=== PATIENT | male | born 1950 | race Caucasian/White ===

== ENCOUNTER 2017-01-13 08:13 | Outpatient (CLI) | payer MEDICARE ==
[~2017-01-13] VITALS: Ht 188.2 cm; Wt 113.6 kg
--- NOTE | ~2017-01-13 | HEMODYNAMI ---
PATIENT:HECTOR HUFF MEDICAL RECORD: [id number] : 50 LOCATION:CRYSTAL ADMISSION DATE: 01/13/17 Generatedon:01/13/201710:01 Patient name: HECTOR HUFF Patient #: [id number] SSN: : 1950 Date of study: 01/13/2017 Page: Of Hemodynamic Procedure Report Patient Data Patient Demographics Procedure consent was obtained First Name: HECTOR Gender: Male Last Name: REFUGIO : 1950 Middle Initial: E Age: 66 year(s) Patient #: [id number] Race: Unknown Additional ID: [id number] Contact details Address: [address] [place] [address] State: [place] City: [place] Zip code: [address] Admission Admission Data Admission Date: 01/13/2017 Admission Time: 8:13 Procedure Procedure Types Cath Procedure Diagnostic Procedure LHC LHC w/Coronaries PCI Procedure Coronary Stent Initial Miscellaneous Procedures Moderate Sedation up to 30 minutes Peripheral Cath Diagnostic Procedure Cath Peripheral Four Vessel Arteriogram Procedure Description Procedure Date Procedure Date: 01/13/2017 Procedure Start Time: 9:42 Procedure End Time: 9:59 Procedure Staff Name Function Derrick Daly MD Performing Physician James Huizar RT Scrub Isa Lind RN Nurse Trace Zamarripa RN Equipment Maintenance Superintendent René Cintron RT Monitor Yannick Gonzalez RT Monitor Procedure Data Cath Procedure Fluoroscopy Diagnostic fluoroscopy Total fluoroscopy Time: 3.4 time: 3.4 min min Diagnostic fluoroscopy Total fluoroscopy dose: 957 dose: 957 mGy mGy Contrast Material Contrast Material Type Amount (ml) Isovue 300 124 Entry Location Entry Primary Successful Side Size Upsize Upsize Entry Closure Succes sful Closure Location (Fr) 1 (Fr) 2 (Fr) Remarks Device Remarks Femoral Right 5 Fr 6 Fr Exoseal artery Short Estimated blood loss: 10 ml Diagnostic catheters Device Type Used For End Catheter Placement Cordis 5Fr Pigtail Procedure Catheter (MP) Cordis 5Fr JL 4.0 Procedure Catheter (MP) Cordis 5Fr 3DRC Catheter Procedure (MP) Procedure Complications No complications Procedure Medications Medication Administration Route Dosage Oxygen NC 2 l/min Heparin Flush Bag added to field 2 bags (1000units/500ml NS) Lidocaine 2% added to field 20 Versed I.V. 1 mg Fentanyl I.V. 50 mcg Versed I.V. 1 mg Fentanyl I.V. 50 mcg Versed I.V. 1 mg Fentanyl I.V. 50 mcg Versed I.V. 1 mg Fentanyl I.V. 50 mcg Heparin Bolus I.V. 4000 units Hemodynamics Rest Heart Rate: 49 (bpm) Pressure Samples Time Site Value (mmHg) Purpose Heart Use Rate(bpm) 9:44 LV 95/66,68 Snapshot 49 Snapshots Pre Cath Intra NCS Post Cath Vital Signs Time Heart Resp SPO2 NIBP (mmHg) Rhythm Pain Sedation Rate (ipm) (%) Status Level (bpm) 9:22:17 44 16 99 Measuring SB 0 (11) 10(A) , No pain 9:22:27 45 16 99 158/92(105) SB 0 (11) 10(A) , No pain 9:26:47 47 14 98 147/83(99) SB 0 (11) 10(A) , No pain 9:31:03 49 13 96 135/84(99) SB 0 (11) 10(A) , No pain 9:35:15 48 16 95 124/80(92) SB 0 (11) 10(A) , No pain 9:39:27 48 16 95 121/75(86) SB 0 (11) 10(A) , No pain 9:43:35 46 16 95 118/65(84) SB 0 (11) 9(A) , No pain 9:47:43 52 19 95 125/83(100) SB 0 (11) 9(A) , No pain 9:51:55 48 18 95 115/82(101) SB 0 (11) 9(A) , No pain 9:56:02 50 19 95 130/78(96) SB 0 (11) 9(A) , No pain Medications Time Medication Route Dose Verified Delivered Reason Notes Effectiveness by by 9:22:01 Oxygen NC 2 Derrick Isa Per physician l/min Addy Lind RN 9:22:09 Heparin Flush added 2 Derrick Meza used for Bag to bags Addy Daly MD procedure (1000units/500ml field NS) 9:22:19 Lidocaine 2% added 20ml Derrick Dietzrey used for to vial Addy Daly MD procedure field 9:37:38 Versed I.V. 1 mg Derrick Isa for sedation Addy Lind RN 9:37:43 Fentanyl I.V. 50 Derrick Isa for sedation mcg Addy Lind RN 9:39:45 Versed I.V. 1 mg Derrick Isa for sedation Addy Lind RN 9:39:55 Fentanyl I.V. 50 Derrick Isa for sedation mcg Addy Lind RN 9:41:32 Fentanyl I.V. 50 Derrick Isa for sedation mcg Addy Lind RN 9:41:46 Versed I.V. 1 mg Derrick Isa for sedation Addy Lind RN 9:43:40 Versed I.V. 1 mg Derrick Isa for sedation Addy Lind RN 9:43:43 Fentanyl I.V. 50 Derrick Isa for sedation mcg Addy Lind RN 9:50:03 Heparin Bolus I.V. 4000 Derrick Isa for dose units Addy Lind RN anticoagulation verified wt dr daly Procedure Log Time Note 9:00:57 Trace Zamarripa RN sent for patient. Start room use. 9:05:53 ACC Patient presents with Unstable Angina CCS Anginal Class 3--Marked limitation of physical activity, angina occurs with ordinary activity.. 9:05:55 Diagnostic Cath status Urgent 9:06:04 Time tracking: Regular hours 9:06:08 Plan of Care:Hemodynamics will remain stable., Cardiac rhythm will remain stable., Comfort level will be maintained., Respiratory function will remain adequate., Patient/ family verbilizes understanding of procedure., Procedure tolerated without complication., Recovers from procedure without complications.. 9:10:36 Patient received from Pre/Post Procedure Room to CCL 2 Alert and oriented. Tansferred to table in Supine position. 9:10:37 Warm blankets applied, and sarah hugger turned on for patient comfort. 9:10:37 Correct patient and procedure confirmed by team. 9:10:39 Signed procedure consent form obtained from patient. 9:10:39 ECG and BP/O2 sat monitors applied to patient. 9:20:29 Vital chart was started 9:22:01 Oxygen 2 l/min NC was administered by Isa Lind RN; Per physician; 9:22:09 Heparin Flush Bag (1000units/500ml NS) 2 bags added to field was administered by Derrick Daly MD; used for procedure; 9:22:19 Lidocaine 2% 20ml vial added to field was administered by Derrick Daly MD; used for procedure; 9:26:00 Baseline sample Acquired. 9:26:04 Rhythm: 1st degree heart block 9:26:05 Full Disclosure recording started 9:26:13 H&P Date Dictated: 12/17/2016 Within 30 days and on chart., H&P Addendum completed by physician on day of procedure. (MUST COMPLETE FOR ALL OUTPATIENTS). 9:26:14 Pre-procedure instructions explained to patient. 9:26:14 Pre-op teaching completed and patient verbalized understanding. 9:26:15 Family in patients room. 9:26:17 Patient NPO since Midnight. 9:26:19 Is the patient allergic to Iodine/contrast media? No. 9:26:25 Is patient on blood thinner?Yes 9:26:28 ACC The patient was administered the following blood thiners within the last 24 hours: ACCPlavix 9:26:47 Last dose of Plavix: this AM 9:26:50 Patient diabetic? Yes. 9:26:50 If diabetic: On Metformin? Yes 9:26:52 If on Metformin: Last Dose? 01/11/2017 9:26:54 Previous problem with sedation/anesthesia? No ? 9:26:56 Snore? Yes 9:26:58 Sleep apnea? Yes 9:26:59 Deviated septum? No 9:27:14 Airway obstruction? No ? 9:27:16 Dentures? No ? 9:27:18 Pre procedure: right dorsailis pedis pulse 1+ Palpable, but thready & weak; easily obliterated 9:27:21 Patient pain scale 0/10 ?. 9:27:31 IV patent on arrival in left forearm with 0.9% NaCl at O. 9:27:52 Lab results completed and on chart. 9:28:38 Pt's abdomen was taped back for access of right groin. 9:28:41 Right groin area was prepped with chlora-prep and draped in sterile fashion 9::42 Alarms reviewed by R. N. 9::42 Sharps counted by scrub and verified by R.N. 9:29:10 Procedure type changed to Cath procedure, Diagnostic procedure, LHC, LHC w/Coronaries, PCI procedure, Coronary Stent Initial, Miscellaneous Procedures, Moderate Sedation up to 30 minutes, Peripheral Cath Diagnostic Procedure, Cath Peripheral, Four Vessel Arteriogram 9:30:18 Use device set Femoral Dx 9:30:20 Tegaderm 4 x 4 opened to sterile field. 9:30:21 Acist Hand Control opened to sterile field. 9:30:21 Acist Manifold opened to sterile field. 9:30:22 Acist Syringe opened to sterile field. 9:30:23 Bag Decanter opened to sterile field. 9:30:23 Medline Cath Pack opened to sterile field. 9:30:23 Terumo 5Fr Ashton Sheath opened to sterile field. 9:30:24 St Ernico 260cm J .035 wire opened to sterile field. 9:30:25 Diagnostic Infinity 5Fr Multipack catheter opened to sterile field. 9:36:13 Zero performed for pressure channel P1 9:37:02 Physician arrived 9:37:03 --------ALL STOP TIME OUT------ 9:37:03 Final Timeout: patient, procedure, and site verified with staff and physician. All members of the team are in agreement. 9:37:07 Right groin site verified by team. 9:37:09 Physical assessment completed. ASA score P 2 - A patient with mild systemic disease as per Derrick Daly MD. 9:37:12 Sedation plan: IV Moderate Sedation Versed, Fentanyl 9:37:38 Versed 1 mg I.V. was administered by Isa Lind RN; for sedation; 9:37:43 Fentanyl 50 mcg I.V. was administered by Isa Lind RN; for sedation; 9:39:45 Versed 1 mg I.V. was administered by Isa Lind RN; for sedation; 9:39:55 Fentanyl 50 mcg I.V. was administered by Isa Lind RN; for sedation; 9:41:32 Fentanyl 50 mcg I.V. was administered by Isa Lind RN; for sedation; 9:41:46 Versed 1 mg I.V. was administered by Isa Lind RN; for sedation; 9:41:54 Procedure started. 9:42:07 Local anesthetic to right femoral artery with Lidocaine 2% by Derrick Daly MD.INITIAL ACCESS ONLY 9:42:38 A 5 Fr sheath was inserted into the Right Femoral artery 9:43:40 Versed 1 mg I.V. was administered by Isa Lind RN; for sedation; 9:43:42 A Cordis 5Fr Pigtail Catheter (MP) was advanced over the wire and used for Procedure. 9:43:43 Fentanyl 50 mcg I.V. was administered by Isa Lind RN; for sedation; 9:44:13 LV gram done using ANDRES 9:44:18 Injector settings: Ml/sec: 10, Volume: 20, 9:44:22 EF : 55 % 9:44:28 Catheter exchanged over wire. 9:44:32 A Cordis 5Fr JL 4.0 Catheter (MP) was advanced over the wire and used for Procedure. 9:44:50 LCA angiography performed. 9:45:22 ShopIttronic Launcher 6Fr EBU 4.5 guide catheter opened to sterile field. 9:45:39 Catheter removed. 9:45:47 A Cordis 5Fr 3DRC Catheter (MP) was advanced over the wire and used for Procedure. 9:46:11 RCA angiography performed. 9:46:24 Guaman Whisper J 300cm 0.014 guide wire opened to sterile field. 9:46:25 [facility] BasixCompak Inflation Kit opened to sterile field. 9:47:02 Right subclavian angiography performed 9:47:32 Left carotid angiography performed. 9:48:05 Left subclavian angiography performed 9:48:13 Catheter removed. 9:48:36 Terumo 6Fr Ashton Sheath opened to sterile field. 9:48:45 Sheath upsized to a 6 Fr Short. 9:49:00 6 Fr EBU 4.5 guide catheter was inserted over the wire 9:50:03 Heparin Bolus 4000 units I.V. was administered by Isa Lind RN; for anticoagulation; dose verified wtih dr daly 9:50:37 WHISPER wire advanced. 9:52:38 Wire advanced across lesion. 9:52:39 Inflation Number: 1 A Medtronic Resolute 2.5 X 14 stent was prepped and advanced across the Mid LAD. The stent was deployed at 21 HASMUKH for 0:10 (min:sec). 9:52:47 Inflation number: 2 The stent balloon was then re-inflated across the Mid LAD to 21 HASMUKH for 0:10 (min:sec). 9:52:54 Wire removed. 9:52:56 Guide catheter removed. 9:53:11 Cordis 6Fr Exoseal opened to sterile field. 9:53:34 Sheath removed intact; hemostasis achieved with Exoseal to the Right Femoral artery. 9:53:36 Procedure ended.(Physican Out) 9:55:33 Fluoroscopy time 03.40 minutes. 9:55:37 Fluoroscopy dose: 957 mGy 9:55:37 Flurop Dose total: 957 9:55:46 Contrast amount:Isovue 300 124ml. 9:55:47 Sharps counted by scrub and verified by R.N. 9:55:58 Insertion/operative site no bleeding no hematoma. 9:56:00 Post-op/insertion site Right Femoral artery dressed using a 4 x 4 and Tegaderm. 9:56:04 Post right femoral artery:stable, soft, clean and dry 9:56:05 Post Procedure Pulses reassessed and unchanged 9:56:07 Post-procedure physical assessment completed. ASA score P 2 - A patient with mild systemic disease as per Derrick Daly MD. 9:56:09 Post procedure rhythm: unchanged. 9:56:11 Estimated blood loss: 10 ml 9:56:13 Post procedure instruction explained to patient.Patient verbalizes understanding. 9:59:11 Procedure and supply charges have been captured, reviewed, submitted and are correct. 9:59:13 Procedure Complication : No complications 9:59:15 Vital chart was stopped 9:59:15 See physician's report for complete and final results. 9:59:17 Report given to Pre/Post Procedure Room. 9:59:19 Patient transfered to Pre/Post Procedure Room with Stretcher. 9:59:22 Procedure ended. 9:59:22 Full Disclosure recording stopped 9:59:54 End room use (Document Last) Intervention Summary Intervention Notes Time ActionType Lesion and Equipment Action# Pressure Duration Attributes Used 9:52:39 Place stent Mid LAD Medtronic 1 21 00:10 Resolute 2.5 X 14 stent 9:52:47 Reinflate Mid LAD Medtronic 2 21 00:10 stent Resolute balloon 2.5 X 14 stent Device Usage Item Name Manufacture Quantity Catalog Hospital Part Current Minimal Lot# / Number Charge Number Stock Stock Serial# Code Tegaderm 4 3M 1 [id number] [id number] 149716 5 x 4 Acist Hand Acist 1 30947 809543 016507 218923 5 iMedix Inc. Systems Inovus Solar Acist Acist 1 65530 473361 812041 989651 5 PrepClass Medical Systems Inovus Solar Acist Acist 1 38429 657821 468649 828172 20 Syringe Weibu Bag Microtek 1 2002S 456002 89782 785419 5 Sud[employer] Paints Inc. Medline Cardinal 1 [id number] 328751 38997 015873 5 Cath Pack Health Terumo 5Fr Terumo 1 [id number] 053334 200592 570401 [address] St Enrico 1 468150 267057 345645 894599 30 260cm J .035 wire Diagnostic Cardinal 1 [id number] 041955 32648 214984 30 Infinity Health 5Fr Multipack catheter Cordis 5Fr Cardinal 1 [id number] 5 Pigtail Health Catheter (MP) Cordis 5Fr Cardinal 1 [id number] 5 JL 4.0 Health Catheter (MP) Medtronic Medtronic 1 [id number] 355762 72616 614000 0 Launcher 6Fr EBU 4.5 guide catheter Cordis 5Fr Cardinal 1 287735 5 3DRC Health Catheter (MP) Guaman Guaman 1 [id number] 633964 084835 966179 5 [facility] J Vascular 300cm 0.014 guide wire Merit Merit 1 [id number] 208565 558341 581840 15 CompleteCar.com Inflation Kit Terumo 6Fr Terumo 1 CEH104 762155 910298 272935 40 Ashton Sheath Medtronic Medtronic 1 [id number] 696682 995081 1 [id number] Resolute 2.5 X 14 stent Cordis 6Fr Cardinal 1 EX600 210514 148566 978673 10 [employer]her[employer] Signature Audit [place]son Stage Time Signature Unsigned Intra-Procedure 01/13/2017 Yannick Gonzalez 10:01:52 AM RT(R) Signatures Monitor : René Cintron RT Signature : Date : Time : Monitor : Yannick Gonzalez RT Signature : Date : Time : [place] [address] [place] [address]
[~2017-01-13 08:13] MED LIST: AMBIEN10 MG PO; ASPIRIN81 MG PO; BACTROBAN NASAL1 GM NASAL; CELEXA20 MG PO; CLARITIN 10 MG10 MG PO; COREG25 MG PO; COZAAR50 MG PO; EFFIENT10 MG PO; FLOMAX0.4 MG PO; GLUCOPHAGE500 MG PO; HYDRALAZINE HC100 MG; HYDROCHLOROTHIA50 MG PO; HYDROCODONE-APA1 TAB PO; KLOR-CON M2020 MEQ PO; KLOR-CON20 MEQ/PKT PO; NAPROSYN500 MG PO; NORVASC10 MG PO; PLAVIX75 MG PO; ZYLOPRIM300 MG PO
[2017-01-13] MEDS ORDERED: PLAVIX75 MG PO (08:34)
[2017-01-13] MEDS ORDERED: LIPITOR10 MG PO (08:36)
[2017-01-13] MEDS ORDERED: NORVASC10 MG PO (08:37)
[2017-01-13] MEDS ORDERED: MECLIZINE HCL25 MG PO (08:39)
[2017-01-13 08:41] VITALS: BP 131/74; Ht 188.2 cm; Wt 113.6 kg
[2017-01-13 08:51] LABS: BASOPHILS 0.5 % (0-2); EOSINOPHILS 5.5 % (0-7); HEMATOCRIT 45.9 % (42.0-54.0); HEMOGLOBIN 15.4 g/dL (13.5-17.5); IMMATURE GRANULOCYTES 0.4 % (0-5); LYMPHOCYTES 25.7 % (15-50); MCH 30.2 pg (26.0-34.0); MCHC 33.6 g/dL (31.0-37.0); MEAN PLATELET VOLUME 10.8 fL (7.4-10.4); MONOCYTES 9.6 % (2-11); NEUTROPHILS 58.3 % (40-80); RDW 13.6 % (11.5-14.5); WBC 7.7 10x3/uL (4.8-10.8)
[2017-01-13 08:53] LABS: PLATELET COUNT 235 10x3/uL (130-400)
[2017-01-13 08:58] LABS: CALC OSMOLALITY 283 mosm/kg (275-300); CALCIUM 9.9 mg/dL (8.5-10.1); CARBON DIOXIDE 25.9 mmol/L (21.0-32.0); CHLORIDE - SERUM 102 mmol/L (98-107); GLUCOSE 179 mg/dL (74-106); SODIUM 139 mmol/L (136-145); UREA NITROGEN 17 mg/dL (7-18); eGFR NON AFRICAN AMERICAN 79 mL/min (90-120)
--- NOTE | 2017-01-13 10:17 | NUR ---
1010 RECEIVED PT FROM TEACHING ARTIST, PT IS ASLEEP AWAKENS TO VERBAL STIMULI. DENIES ANY C/O AT THIS TIME. DRESSING TO RIGHT GROIN IS CDI, NO BLEEDING OR HEMATOMA NOTED. NO FAMILY AT BEDSIDE. CALL LIGHT IN REACH, INSTRUCTED PT TO CALL FOR NEEDS.
--- NOTE | 2017-01-13 10:39 | NUR ---
1025 PT DENIES ANY C/O. SINUS BRADYCARDIA, RATE 46. RIGHT GROIN CDI, NO BLEEDING OR HEMATOMA NOTED. PEDAL PULSES PALPABLE, FEET WARM TO TOUCH, CAP REFILL IS BRISK. NO FAMILY AT BEDSIDE, CALL LIGHT IS IN REACH.
--- NOTE | 2017-01-13 10:53 | NUR ---
1050 SINUS BRADYCARDIA, RATE 47, BP 108/70. RIGHT GROIN IS CDI, NO BLEEDING OR HEMATOMA NOTED. CALL LIGHT IN REACH.
--- NOTE | 2017-01-13 11:30 | NUR ---
1130 RIGHT GROIN CDI, NO BLEEDING OR HEMATOMA NOTED. PT DENIES ANY C/O. AT BEDSIDE.
--- NOTE | 2017-01-13 12:30 | NUR ---
1230 PO FLUIDS AND SANDWICH TRAY SERVED. PT DENIES ANY C/O CHEST PAIN. DRESSING TO RIGHT GROIN IS CDI, NO BLEEDING OR HEMATOMA NOTED AT SITE. AREA IS SOFT AND NON-TENDER.
--- NOTE | 2017-01-13 13:33 | NUR ---
1330 PT KEYON SANDWICH AND PO FLUIDS WITH NO C/O. HOB ELEVATED TO 45 DEGREES, DRESSING TO RIGHT GROIN CDI. PEDAL PULSES PALPABLE. AT BEDSIDE. PT DENIES ANY CHEST DISCOMFORT.
--- NOTE | 2017-01-13 14:00 | NUR ---
1400 IV HAS BEEN DC'D WITH CATH INTACT. REVIEWED DC INSTRUCTIONS WITH PT AND WHO VERBALIZE UNDERSTANDING. STENT CARD, EXOSEAL BOOKLET, HOMECARE BOOKLET, PLAVIX RX AND DC INSTRUCTIONS TO PATIENT. PT INSTRUCTED TO HOLD METFORMIN FOR 48 HOURS POST CATH AND VERBALIZES UNDERSTANDING. PT HAS VOIDED QS. PT ESCORTED TO PRIVATE AUTO VIA WC BY STAFF WITH DRIVING HIM HOME. PT DENIES ANY C/O UPON DC FROM UNIT.
--- NOTE | 2017-01-14 11:31 | OP ---
PATIENT NAME: HECTOR HUFF MEDICAL RECORD: [id number] :50 LOCATION:D.CAT ADMISSION DATE: SURGEON: CURTIS RIVERA MD DATE OF OPERATION: 01/13/2017 PROCEDURES: 1. PTCA stent LAD. 2. Left heart catheterization. 3. Selective coronary angiography. 4. Left ventriculogram. INDICATION: Angina and coronary artery disease. PROCEDURE: After informed consent was obtained and after a detailed explanation of risks, benefits as well as alternative therapies, the patient elected to proceed with angiogram and angioplasty. The right femoral area was prepped and draped in normal sterile fashion. The right femoral artery was cannulated via modified Seldinger technique with placement of 6-Albanian sheath. All catheters exchanged through this sheath. FINDINGS: The left ventriculogram was performed in the standard 30-degree ANDRES view reveals good cardiac wall motion throughout all segments. Overall ejection fraction is 60%. SELECTIVE CORONARY ANGIOGRAPHY: 1. Left main showed no significant angiographic disease. 2. Left anterior descending has previously placed stents. There is 80% in-stent restenosis in the mid vessel. 3. Left circumflex shows moderate irregularities, but no flow-limiting stenosis. 4. Right coronary has moderate irregularities, but no flow-limiting stenosis. PTCA STENT OF THE LAD: The stent used was a 2.5 x 14 mm Resolute. Result was 0% residual stenosis. OVERALL IMPRESSION: Successful percutaneous transluminal coronary angioplasty stent of the left anterior descending going from 80% in-stent restenosis to 0% residual stenosis. TRANSINT:[id number] Voice Confirmation ID: [id number] DOCUMENT ID: [id number] CURTIS RIVERA MD at 1131 CC: [id number] DICTATION DATE: 01/13/17 1001 CONCRETE PAVING SUPERVISOR: 01/13/17 1101 DEP CLI 01/13/17 [place] [address]
--- NOTE | 2017-01-14 11:31 | OP ---
PATIENT NAME: HECTOR HUFF MEDICAL RECORD: [id number] :50 LOCATION:D.CAT ADMISSION DATE: SURGEON: CURTIS RIVERA MD DATE OF OPERATION: 01/13/2017 PROCEDURE: A Four-vessel carotid and vertebral angiography. INDICATION: Unsteady gait and dizziness. PROCEDURE IN DETAIL: After informed consent was obtained and after detailed explanation of risks, benefits as well as alternative therapies, the patient elected to proceed with angiogram. The right femoral area had a preexisting sheath from cardiac intervention. All catheters exchanged through this sheath. FINDINGS: There was a subselection of each subclavian as well as the left carotid. RIGHT SIDE: The common internal and external carotids have mild plaquing, none greater than 10% to 20%. No flow-limiting stenosis. Vertebral arteries devoid of disease. LEFT SYSTEM: The common internal and external carotids have mild plaquing, none greater than 10% to 20%. No flow-limiting stenosis. Vertebral artery is smooth-walled with no significant disease. OVERALL IMPRESSION: No significant carotid vascular disease is present. Symptomatology is not from carotid vascular insufficiency. TRANSINT:[id number] Voice Confirmation ID: [id number] DOCUMENT ID: [id number] CURTIS RIVERA MD at 1131 CC: [id number] DICTATION DATE: 01/13/17 0957 ICE BAG ASSEMBLER: 01/13/17 1053 DEP CLI 01/13/17 [place] [id number] [place] [id number]
== END 2017-01-13 14:00 | disposition home or self-care (01) ==
LOC: D.CATH 08:13
PROVIDERS: Internal Medicine Interventional Cardiology
DX: I25.119 Atherosclerotic heart disease of native coronary artery with unspecified angina pectoris (principal); R26.81 Unsteadiness on feet
CPT/HCPCS: 36222; 36225; 93458; C9600

== ENCOUNTER → 2018-03-25 13:54 | Outpatient (CLI) | payer MEDICARE ==
[2017-01-13 08:41] VITALS: BMI 32.0
[~2018-03-25 13:54] MED LIST changes: +LIPITOR10 MG PO; +MECLIZINE HCL25 MG PO
== END | disposition home or self-care (01) ==
LOC: D.LABREF 13:54
DX: M25.531 Pain in right wrist (principal); Z11.8 Encounter for screening for other infectious and parasitic diseases

== ENCOUNTER 2018-05-19 10:00 | Inpatient (IN) | payer MEDICARE ==
[~2018-05-19] VITALS: Ht 188 cm; Wt 118.2 kg
--- NOTE | ~2018-05-19 | MORECARE ---
CASE MANAGEMENT DISCHARGE SUMMARY PATIENT: HECTOR HUFF UNIT: [id number] ADM DATE: 05/24/18 AGE: 68 : 50 SEX: M ROOM/BED: D.220 AUTHOR: KEESHA,DOC PHYSICIAN: REFERRING PHYSICIAN: YARIEL LASRON MD DATE OF SERVICE: 05/31/18 Discharge Plan Patient Name: HECTOR HUFF Facility: [facility]:[place] : 1950 Planned Disposition: Home Anticipated Discharge Date: Discharge Date: 05/26/2018 Expected LOS: Initial Reviewer: [email or web address] Initial Review Date: 05/24/2018 Generated: 05/31/18 12:09 pm Comments DCP- Discharge Planning Updated by [id number]: Astrid Cooper on 05/26/18 8:[address] Patient Name: HECTOR HUFF Admission Status: Elective Accout number: [id number] Admission Date: 05-24-2018 : 1950 Admission Diagnosis: Attending: YARIEL LARSON Current LOS: 2 Anticipated DC Date: Planned Disposition: Home Primary Insurance: [facility] PF Discharge Planning Comments: CM met with patient to assess discharge planning needs. Patient lives independently with his and plans to return there today. He states that it is safe for him to return. He has a walker and a CPM will be delivered to his home today from [facility] (spoke with Nora) His PT appointment is set for May 27 at 10:00. (spoke with Alexis) There is one step to enter his home. CM will continue to follow and assist with DC planning as needed. Adaptive Physical Education Specialist: Astrid Cooper DCPIA - Discharge Planning Initial Assessment Updated by [email or web address]: Astrid Cooper on 05/26/18 9:34 am * Is the patient Alert and Oriented? Yes * How many steps to enter\exit or inside your home? * PCP SHANNAN * Pharmacy [facility] [address] * Preadmission Environment Home with Family * ADLs Independent * Equipment Rolling Walker * List name and contact numbers for known caregivers / representatives who currently or will assist patient after discharge: YOSHI() [phone] * Verbal permission to speak to the caregivers and representatives has been obtained from the patient. N/A * Community resources currently utilized None * Additional services required to return to the preadmission environment? Yes * Can the patient safely return to the preadmission environment? Yes * Has this patient been hospitalized within the prior 30 days at any hospital? No Last DP export: 05/26/18 8:44 Patient Name: HECTOR HUFF Page [id number] at 1110 All edits/amendments must be made on the electronic document DICTATION DATE: 05/31/181108 BACTERIOLOGIST DAIRY: CRISTOPHER 05/31/181108 RPT#: [id number] DC DATE:05/26/18 STATUS: DIS IN [facility] [address] [place] [address] END OF REPORT
--- NOTE | ~2018-05-19 | OP ---
PATIENT NAME: HECTOR HUFF MEDICAL RECORD: [id number] :50 LOCATION:[id number] ADMISSION DATE:05/24/18 SURGEON: YARIEL LARSON MD DATE OF OPERATION: 05/24/2018 PREOPERATIVE DIAGNOSIS: Degenerative arthritis of the right knee. POSTOPERATIVE DIAGNOSIS: Degenerative arthritis of the right knee. PROCEDURE: Right total knee arthroplasty. SURGEON: Yariel Larson MD ANESTHESIA: General. INTRAOPERATIVE COMPLICATIONS: None. SUMMARY OF PATHOLOGIC FINDINGS: Extensive bicompartmental osteoarthritis, the patella was relatively clean without chondromalacia. IMPLANTS USED: Tyra triathlon total knee arthroplasty, press fit size 6 distal femur, size 9 x 5 tibial baseplate, size 5 tibial component, all press fit, no patellar used. At the end of the case, a gram of vancomycin and a gram of TXA was placed intraarticularly into the knee. OPERATIVE SUMMARY IN DETAIL: After obtaining the appropriate preoperative orthopedic surgery consent as well as anesthetic consultation, evaluation and clearance, the patient was brought to the operating room and placed on the operating table in supine position. After general laryngeal mask airway was administered, tourniquet was placed about the proximal aspect of the right lower extremity. The right lower extremity was prepped and draped in routine sterile fashion. The leg was elevated and exsanguinated, tourniquet inflated to 350 mmHg. Routine midline incision was taken down for paramedian arthrotomy. Patella was everted, distal femur was exposed. Soft tissue excision was done in the usual fashion. Osteophytes removed. Distal intramedullary guide hole was created for distal intramedullary cut and distal femoral cut was created. This was followed by complete exposure of the proximal tibia. Again, final soft tissue excision was then followed by intramedullary guide hole. Proximal tibia was cut. This was followed with the appropriate measurements. Appropriate measurements were then taken and distal femoral chamfer cuts were made. Having completed this, the knee was irrigated. Trial implants were put into place corresponding to the above implants. Knee was found to be stable in all planes. Final distal femoral and proximal tibial preparations were made. This was followed by further irrigation and then placement of the implants. Implants were put into place, taken through range of motion and found to be stable in all planes. All residual osteophytes were removed from the patella. The knee was again taken through range of motion and found to be stable in all planes. A gram of vancomycin and a gram of TXA were then placed intraarticularly. The paramedian arthrotomy was closed with #2 Ethibond followed by #1 Vicryl and skin felecia. Sterile dressings were applied. The patient was awakened and taken to the recovery room in stable condition. All final needle and sponge counts were correct. TRANSINT:[id number] Voice Confirmation ID: [id number] DOCUMENT ID: [id number] OPERATIVE REPORT [id number] HECTOR HUFF MD, YARIEL QUEVEDO at 1207 CC: [id number] DICTATION DATE: 05/24/18 0856 [employer]PER[employer] OFFICE: 05/24/18 0930 DIS IN 05/26/18 [id number] [place] [address]
[~2018-05-19 10:00] MED LIST changes: -HYDRALAZINE HC100 MG; +HYDRALAZINE HCL50 MG PO
[2018-05-19 11:43] LABS: BASOPHILS 0.6 % (0-2); HEMATOCRIT 45.1 % (42.0-54.0); HEMOGLOBIN 15.4 g/dL (13.5-17.5); IMMATURE GRANULOCYTES 0.6 % (0-5); LYMPHOCYTES 30.1 % (15-50); MCHC 34.1 g/dL (31.0-37.0); MCV 87.7 fL (80.0-100.0); MEAN PLATELET VOLUME 10.5 fL (7.4-10.4); MONOCYTES 7.2 % (2-11); NEUTROPHILS 55.5 % (40-80); PLATELET COUNT 225 10x3/uL (130-400); RBC 5.14 10x6/uL (4.20-6.10); RDW 13.7 % (11.5-14.5); WBC 8.1 10x3/uL (4.8-10.8)
[2018-05-19 11:48] LABS: CALC OSMOLALITY 281 mosm/kg (275-300); CALCIUM 8.9 mg/dL (8.5-10.1); CARBON DIOXIDE 27.8 mmol/L (21.0-32.0); CHLORIDE - SERUM 105 mmol/L (98-107); CREATININE - SERUM 0.9 mg/dL (0.6-1.3); POTASSIUM - SERUM 4.1 mmol/L (3.5-5.1); SODIUM 139 mmol/L (136-145); UREA NITROGEN 17 mg/dL (7-18); eGFR NON AFRICAN AMERICAN 89 mL/min (90-120)
[2018-05-19 11:53] LABS: APTT 30.3 SECONDS (22.8-39.4); INR 0.99 (0.85-1.17); PROTIME 12.7 SECONDS (11.6-15.0)
[2018-05-19 11:56] LABS: GLUCOSE 131 mg/dL (74-106)
[2018-05-19 13:23] LABS: APPEARANCE CLEAR (CLEAR); BILIRUBIN NEGATIVE (NEGATIVE); COLOR YELLOW (YELLOW); GLUCOSE NEGATIVE (NEGATIVE); KETONE NEGATIVE (NEGATIVE); NITRITE NEGATIVE (NEGATIVE); PROTEIN NEGATIVE (NEGATIVE); SPECIFIC GRAVITY 1.015 (1.005-1.020); UROBILINOGEN NORMAL (NORMAL)
[2018-05-19 13:26] LABS: BACTERIA FEW /hpf (NONE SEEN); EPITHELIAL CELLS 0-5 /hpf (0-5); WHITE CELLS - URINE 0-5 /hpf (0-5)
[2018-05-19] MEDS ORDERED: CELEXA20 MG PO (13:28)
[2018-05-19 13:29] LABS: MUCUS <1+ /lpf (NONE SEEN); RED CELLS - URINE OCC /hpf (0-5)
[2018-05-19] MEDS ORDERED: FUROSEMIDE20 MG PO (13:29)
[2018-05-19 13:30] LABS: AMORPHOUS SEDIMENT <1+ /lpf (NONE SEEN); CALCIUM OXALATE CRYSTALS OCC /hpf (NONE SEEN)
[2018-05-19] MEDS ORDERED: NORCO 7.5/325 T1 TA1 PO (13:30)
[2018-05-19] MEDS ORDERED: MOBIC7.5 MG PO (13:31)
[2018-05-19] MEDS ORDERED: BACTROBAN NASAL1 GM NASAL (13:35)
[2018-05-24] VITALS (12 sets, daily range): BP systolic 99–163; BP diastolic 55–86; Ht 188 cm; Wt 118.2 kg
[2018-05-25 05:19] LABS: HEMATOCRIT 39.9 % (42.0-54.0); HEMOGLOBIN 13.3 g/dL (13.5-17.5); MCH 29.8 pg (26.0-34.0); MCHC 33.3 g/dL (31.0-37.0); MCV 89.3 fL (80.0-100.0); MEAN PLATELET VOLUME 10.9 fL (7.4-10.4); RBC 4.47 10x6/uL (4.20-6.10); RDW 13.7 % (11.5-14.5); WBC 8.6 10x3/uL (4.8-10.8)
[2018-05-25 05:31] VITALS: BP 137/64
[2018-05-25 08:08] VITALS: BP 127/73
[2018-05-25 12:04] VITALS: BP 157/77
[2018-05-25 17:15] VITALS: BP 139/62
[2018-05-25 20:06] VITALS: BP 134/65
[2018-05-26 03:56] VITALS: BP 136/63
[2018-05-26 06:11] LABS: HEMATOCRIT 38.1 % (42.0-54.0); HEMOGLOBIN 12.6 g/dL (13.5-17.5); MCH 29.6 pg (26.0-34.0); MCHC 33.1 g/dL (31.0-37.0); MCV 89.4 fL (80.0-100.0); MEAN PLATELET VOLUME 10.7 fL (7.4-10.4); RBC 4.26 10x6/uL (4.20-6.10); RDW 13.6 % (11.5-14.5); WBC 10.1 10x3/uL (4.8-10.8)
[2018-05-26] MEDS ORDERED: ELIQUIS2.5 MG PO (08:07)
[2018-05-26] MEDS ORDERED: OXYCODONE-APAP1 TAB PO (08:08)
[2018-05-26 08:20] VITALS: BP 135/67
== END 2018-05-26 11:58 | disposition home or self-care (01) | DRG 470 ==
LOC: D.SDCHOLD 05-24 05:15 → D.MS 05-24 09:57 → D.SDCHOLD 05-24 10:00 → D.MS 05-26 11:58
PROVIDERS: Orthopaedic Surgery
PROC: 0SRC0JA Replacement of Right Knee Joint with Synthetic Substitute, Uncemented, Open Approach (ICD-10-PCS; principal; 2018-05-24 07:30)
DX: M17.11 Unilateral primary osteoarthritis, right knee (principal); M25.761 Osteophyte, right knee; I10 Essential (primary) hypertension; E11.9 Type 2 diabetes mellitus without complications

== ENCOUNTER 2018-06-06 09:37 | Emergency (ER) | payer MEDICARE ==
[~2018-06-06] VITALS: Ht 188 cm; Wt 118.2 kg
[~2018-06-06 09:37] MED LIST changes: +ELIQUIS2.5 MG PO; +FUROSEMIDE20 MG PO; +MOBIC7.5 MG PO; +NORCO 7.5/325 T1 TA1 PO; +OXYCODONE-APAP1 TAB PO
[2018-06-06 09:56] VITALS: Ht 188 cm; Wt 118.2 kg
[2018-06-06 10:58] VITALS: BP 132/87
== END 2018-06-06 10:58 | disposition home or self-care (01) ==
LOC: D.ER 09:37
DX: G89.18 Other acute postprocedural pain (principal); E11.9 Type 2 diabetes mellitus without complications; I10 Essential (primary) hypertension; I25.10 Atherosclerotic heart disease of native coronary artery without angina pectoris

== ENCOUNTER → 2018-06-07 13:05 | Outpatient (CLI) | payer MEDICARE ==
[2018-06-06 09:56] VITALS: BMI 33.4
[2018-06-07 18:11] LABS: BASOPHILS 0.3 % (0-2); EOSINOPHILS 4.2 % (0-7); HEMATOCRIT 41.2 % (42.0-54.0); HEMOGLOBIN 13.7 g/dL (13.5-17.5); LYMPHOCYTES 20.4 % (15-50); MCH 29.7 pg (26.0-34.0); MCHC 33.3 g/dL (31.0-37.0); MCV 89.2 fL (80.0-100.0); MEAN PLATELET VOLUME 10.5 fL (7.4-10.4); MONOCYTES 6.7 % (2-11); NEUTROPHILS 67.4 % (40-80); RBC 4.62 10x6/uL (4.20-6.10); RDW 13.7 % (11.5-14.5); WBC 9.9 10x3/uL (4.8-10.8)
[2018-06-07 18:16] LABS: C-REACTIVE PROTEIN 5.2 mg/dL (0.0-0.9); CALC OSMOLALITY 283 mosm/kg (275-300); CALCIUM 9.2 mg/dL (8.5-10.1); CARBON DIOXIDE 26.9 mmol/L (21.0-32.0); CHLORIDE - SERUM 98 mmol/L (98-107); CREATININE - SERUM 0.8 mg/dL (0.6-1.3); GLUCOSE 163 mg/dL (74-106); POTASSIUM - SERUM 3.9 mmol/L (3.5-5.1); SODIUM 139 mmol/L (136-145); UREA NITROGEN 18 mg/dL (7-18); eGFR NON AFRICAN AMERICAN > 90 mL/min (90-120)
[2018-06-07 18:18] LABS: PLATELET COUNT 411 10x3/uL (130-400)
[2018-06-07 19:13] LABS: ERYTHROCYTE SEDIMENTATION RATE 21 mm/hr (0-20)
== END | disposition home or self-care (01) ==
LOC: D.LABREF 13:05
PROVIDERS: Orthopaedic Surgery
DX: M25.561 Pain in right knee (principal)

== ENCOUNTER 2020-02-03 18:06 | Emergency (ER) | payer OTHER ==
[2020-02-03 18:19] VITALS: Wt 113.6 kg
[2020-02-03] MEDS ORDERED: CYCLOBENZAPRINE10 MG PO (19:53)
[2020-02-03 21:20] VITALS: BP 156/98
== END 2020-02-03 21:20 | disposition home or self-care (01) ==
LOC: D.ER 18:06
DX: R51 Headache (principal); M54.2 Cervicalgia; M25.511 Pain in right shoulder; V89.2XXA Person injured in unspecified motor-vehicle accident, traffic, initial encounter; Y93.9 Activity, unspecified; Y92.9 Unspecified place or not applicable; E11.9 Type 2 diabetes mellitus without complications; I10 Essential (primary) hypertension; Z72.0 Tobacco use; Z79.84 Long term (current) use of oral hypoglycemic drugs

== ENCOUNTER → 2020-10-16 08:47 | Outpatient (CLI) | payer MEDICARE ==
[2020-08-07 21:00] VITALS: BMI 35.0
[~2020-10-16 08:47] MED LIST changes: +ALDACTONE25 MG PO; +BETAPACE 80 MG80 MG PO; +COREG 3.1253.125 MG PO; +CRESTOR10 MG PO; +CYCLOBENZAPRINE10 MG PO; +ENTRESTO 24 MG1 EACH PO; +LASIX40 MG PO; +LEVAQUIN750 MG PO; +MUCINEX600 MG PO; +XARELTO20 MG PO
== END | disposition home or self-care (01) ==
LOC: D.HCCECHO 08:47
PROVIDERS: ATTEND Internal Medicine Cardiovascular Disease
DX: I42.9 Cardiomyopathy, unspecified (principal)